=== PATIENT | female | born 1975 | race Caucasian/White ===

== ENCOUNTER 2016-12-15 19:58 | Emergency (ER) | payer OTHER ==
[~2016-12-15] VITALS: Ht 162.6 cm; Wt 63.0 kg
[~2016-12-15 19:58] MED LIST: DICY1TAB26 PO; LEVO.1 PO; PANT20 PO; SUCR1S PO
[2016-12-15 20:17] VITALS: BP 113/59; PULSE 86; RESP 18; TEMP 98.7; O2SAT 98
[2016-12-15] MEDS ORDERED: SODIUM CHLOR 0.9% 1000 ML INJ 1,000 ML IV SCH (20:35)
[2016-12-15] MEDS ORDERED: ASPI1POW8 PO (20:42)
[2016-12-15] MEDS ORDERED: LEVO.125 PO (20:42)
--- NOTE | 2016-12-15 20:43 | PD ---
HPI Chief Complaint: Abdominal Pain Time Seen by Provider: 20:35 Travel History International Travel<30 days: No Contact w/Intl Traveler<30days: No Traveled to known affect area: No History of Present Illness HPI 41-year-old female presents to the emergency department by private transportation for complaint of breast or worsening right lower quadrant abdominal pain. According to patient she felt well yesterday and then awakened this morning with mild nausea. Patient noticed that she cannot finish her lunch at lunchtime. Patient started noticing some mild right-sided lower quadrant abdominal discomfort and felt as if she may need to have a bowel movement. Patient used [id number] gas medication and had a small bowel movement. No mucoid or grossly bloody stool. Patient states prominent did not relieve symptoms. Patient denies any dysuria frequency or urgency. Patient is status post hysterectomy secondary to endometriosis. Patient reports prior history of ovarian cystic pain but denies this being similar. Patient was last seen by her exercise scientist this year and no imaging study was done at that time although the recommendation was for CT abdomen and pelvis. Patient did not have the study. Patient denies fever or chills. Patient rates pain at rest 3/ 10 in intensity however with ambulation or palpation pain increased 8/10 in intensity. PFSH Past Medical History Narrative Medical Endometriosis, hysterectomy, ovarian cyst with cyst excision, hypothyroidism C- section 2; occasional alcohol and tobacco use; nursing notes reviewed Cancer: No Diabetes: No Diminished Hearing: No Hepatitis: No Hiatal Hernia: No Reproductive: Yes (ENDOMETRIOSIS) Thyroid Disease: Yes (hypo) : 2 Para: 2 Ovarian Cysts: Yes Past Surgical History Abdominal Surgery: Yes (LAP 02/13/20052002) Section: Yes (X2) Gynecologic Surgery: Yes (x2 laparoscopy x2 ) Hysterectomy: Yes (DEC 2010) Other Surgery: Yes Family History Family Hypercholesterolemia: Yes (MOTHER) Social History Alcohol Use: Yes (socially) Tobacco Use: Yes Substance Use: No Allergies-Medications (Allergen,Severity, Reaction): Coded Allergies: naproxen (Unverified Allergy, Severe, Anaphylaxis, 12/14/16) Reported Meds & Prescriptions Reported Meds & Active Scripts Active Bactrim DS (Sulfamethoxazole-Trimethoprim) 800-160 Mg Tab 1 Tab PO BID Lortab (Hydrocodone-Acetaminophen) 5-325 Mg Tab 1 Tab PO Q6H PRN Zofran Odt (Ondansetron Odt) 4 Mg Tab 4 Mg SL Q6HR PRN Reported Bc Fast Pain Relief Powder (Aspirin-Caffeine Powder) 845-65 Mg Powderpack 1 Pack PO Q4HR PRN Synthroid (Levothyroxine Sodium) 125 Mcg Tab 125 Mcg PO DAILY Review of Systems Except as stated in HPI: all other systems reviewed are Neg General / Constitutional: No: Fever, Chills HENT: No: Congestion Cardiovascular: No: Chest Pain or Discomfort Gastrointestinal: Positive: Nausea, Abdominal Pain, Loss of Appetite, No: Vomiting, Diarrhea, Hematochezia Genitourinary: No: Dysuria, Pelvic Pain, Flank Pain Musculoskeletal: No: Myalgias, Arthralgias Skin: No Rash Neurologic: No: Weakness Psychiatric: Positive: Anxiety Hematologic/Lymphatic: No: Lymph Node Enlargement Physical Exam Narrative GENERAL: Well-developed well-nourished female in obvious discomfort no respiratory distress SKIN: Warm and dry. HEAD: Normocephalic. EYES: No scleral icterus. No injection or drainage. NECK: Supple, trachea midline. No JVD or lymphadenopathy. CARDIOVASCULAR: Regular rate and rhythm without murmurs, gallops, or rubs. RESPIRATORY: Breath sounds equal bilaterally. No accessory muscle use. GASTROINTESTINAL: Abdomen soft, reproducible right lower quadrant tenderness with voluntary guarding without rebound nondistended. Pelvic exam: Normal external exam no redness lesion or induration; speculum exam scant white mucus no blood no clots normal cervical cuff; bimanual exam no adnexal mass mild tenderness on right nontender on left. MUSCULOSKELETAL: No cyanosis, or edema. BACK: Nontender without obvious deformity. No CVA tenderness. Data Data Last Documented VS Vital Signs Date Time Temp Pulse Resp B/P Pulse Ox O2 Delivery O2 Flow Rate FiO2 12/16/16 00:05 74 16 90/57 100 Room Air 12/15/16 20:17 98.7 Orders Complete Blood Count With Diff (12/15/16 20:35) Comprehensive Metabolic Panel (12/15/16 20:35) Urinalysis - C+S If Indicated (12/15/16 20:35) Ct Abd/Pel W Iv Contrast(Rout) (12/15/16 20:35) Iv Access Insert/Monitor (12/15/16 20:35) Ecg Monitoring (12/15/16 20:35) Oximetry (12/15/16 20:35) Sodium Chlor 0.9% 1000 Ml Inj (Ns 1000 M (12/15/16 20:35) Sodium Chloride 0.9% Flush (Ns Flush) (12/15/16 20:45) Ondansetron Inj (Zofran Inj) (12/15/16 20:45) Hydromorphone Pf Inj (Dilaudid Pf Inj) (12/15/16 20:45) Oral Contrast - Adult (12/15/16 20:41) Diatrizoate Liq ( Gastroview Liq) (12/15/16 21:06) Urine Culture (12/15/16 21:00) Hydromorphone Pf Inj (Dilaudid Pf Inj) (12/15/16 22:00) Iohexol 350 Inj (Omnipaque 350 Inj) (12/15/16 22:39) Ceftriaxone Inj (Rocephin Inj) (12/15/16 23:15) Phenazopyridine (Pyridium) (12/15/16 23:15) Sodium Chlorid 0.9% 500 Ml Inj (Ns 500 M (12/15/16 23:15) Labs Laboratory Tests Test 12/15/16 21:00 White Blood Count 11.9 TH/MM3 Red Blood Count 4.51 MIL/MM3 Hemoglobin 14.1 GM/DL Hematocrit 41.1 % Mean Corpuscular Volume 91.0 FL Mean Corpuscular Hemoglobin 31.2 PG Mean Corpuscular Hemoglobin 34.3 % Concent Red Cell Distribution Width 13.1 % Platelet Count 222 TH/MM3 Mean Platelet Volume 8.2 FL Neutrophils (%) (Auto) 75.0 % Lymphocytes (%) (Auto) 17.1 % Monocytes (%) (Auto) 5.4 % Eosinophils (%) (Auto) 2.1 % Basophils (%) (Auto) 0.4 % Neutrophils # (Auto) 9.1 TH/MM3 Lymphocytes # (Auto) 2.0 TH/MM3 Monocytes # (Auto) 0.6 TH/MM3 Eosinophils # (Auto) 0.2 TH/MM3 Basophils # (Auto) 0.0 TH/MM3 CBC Comment DIFF FINAL Differential Comment Urine Color YELLOW Urine Turbidity CLEAR Urine pH 5.5 Urine Specific [place] 1.015 Urine Protein NEG mg/dL Urine Glucose (UA) NEG mg/dL Urine Ketones NEG mg/dL Urine Occult Blood NEG Urine Nitrite NEG Urine Bilirubin NEG Urine Leukocyte Esterase NEG Urine RBC 0-2 /hpf Urine WBC 0-2 /hpf Urine Squamous Epithelial 6-8 /hpf Cells Urine Bacteria MANY /hpf Microscopic Urinalysis Comment CULTURE INDICATED Sodium Level 138 MEQ/L Potassium Level 3.7 MEQ/L Chloride Level 107 MEQ/L Carbon Dioxide Level 25.0 MEQ/L Anion Gap 6 MEQ/L Blood Urea Nitrogen 12 MG/DL Creatinine 0.79 MG/DL Estimat Glomerular Filtration 80 ML/MIN Rate Random Glucose 83 MG/DL Calcium Level 8.4 MG/DL Total Bilirubin 0.3 MG/DL Aspartate Amino Transf 16 U/L (AST/SGOT) Alanine Aminotransferase 23 U/L (ALT/SGPT) Alkaline Phosphatase 59 U/L Total Protein 7.4 GM/DL Albumin 4.1 GM/DL MDM Medical Decision Making Medical Screen Exam Complete: Yes Emergency Medical Condition: Yes Medical Record Reviewed: Yes Interpretation(s) CBC & BMP Diagram 12/15/16 21:00 Vital Signs Date Time Temp Pulse Resp B/P Pulse Ox O2 Delivery O2 Flow Rate FiO2 12/15/16 21:55 16 12/15/16 20:50 16 99 Room Air 12/15/16 20:17 98.7 86 18 113/59 98 UA: many bacteria; cx indicated Last Impressions Abdomen/Pelvis CT 12/15/162034 Signed Impressions: Service Date/Time: Thursday, December 15, 2016 22:35 - CONCLUSION: 1. Acute abnormality is not seen. 2. Mild cystic change in the adnexal regions likely related follicles in the ovaries. Michael Thomas MD Differential Diagnosis Abdominal pain, appendicitis, ovarian torsion, renal colic, atypical diverticulitis Narrative Course Patient Nothing by mouth except for oral contrast, IV access obtained, specimens collected and sent for resulting, patient administered normal saline bolus 1 L along with Dilaudid 0.5 mg IV and Zofran 4 mg IV Patient continues to report pain after receiving pain medication but declines any additional pain medication administration CBC with automated differential mild leukocytosis with left shift chemistries within normal range urinalysis shows many bacteria and culture is indicated Patient to CT and imaging resulted per reading radiologist in no acute abnormalities identified and specifically appendix is visualized and reported as normal per reading radiologist Patient aware of imaging results and lab results. Patient reports she is able to take ibuprofen and Toradol without adverse allergic reaction but cannot take Naprosyn. Patient this time declining any additional pain medication. Patient has ambulated several times to the restroom without difficulty and symptom improvement post micturition. Patient receiving IV fluid bolus as blood pressure did decrease after administration of pain medication and also receiving first dose of antibiotic IV. Offered patient observation admission for pain management but patient declined stating she is better and does not want to be admitted. Patient encouraged to at least pursue close follow up with her PCP or return to the emergency department for ongoing symptoms or if develops fever. Diagnosis Primary Impression: Abdominal pain Qualified Code: R10.31 - Right lower quadrant abdominal pain Additional Impressions: Bacteria in urine Ovarian cyst Qualified Code: N83.201 - Cysts of both ovaries Referrals: Primary Care Physician 1 day Patient Instructions: Narcotic given in the ED, General Instructions Departure Forms: Tests/Procedures, Work Release Special Instructions: no work x 2 days Additional Instructions: Increase fluid hydration Takes Zofran as prescribed as needed for nausea and/or vomiting Monitor temperature every 4 hours with thermometer and take as needed acetaminophen/Tylenol every 4 hours for fever 100.4F or greater or for minor pain; May take as tolerated ibuprofen/Motrin/Advil 600 mg as often as every 6 hours as tolerated for fever 100.4F or greater or for pain associated with inflammation however do not take this medication if precipitates any rash or pruritus. Complete course of antibiotic as prescribed Take pain medication as prescribed as needed No work 2 days Follow-up with your primary care provider call office in a.m. Return to the emergency department for pain fever vomiting or any concerns Med/Other Pt SpecificInfo: Prescription(s) given Scripts Sulfamethoxazole-Trimethoprim (Bactrim DS)800-160 Mg Tab1 Tab PO BID #14 TAB Ref 0 Prov:Trista Mendez MD 12/15/16 Hydrocodone-Acetaminophen (Lortab)5-325 Mg Tab1 Tab PO Q6H PRN (PAIN) #7 TAB Ref 0 Prov:Trista Mendez MD 12/15/16 Ondansetron Odt (Zofran Odt)4 Mg Tab4 Mg SL Q6HR PRN (Nausea/Vomiting) #10 TAB Ref 0 Prov:Trista Mendez MD 12/15/16 Disposition: 01 DISCHARGE HOME Condition: Stable Trista Mendez MD Dec 15, 2016 20:43
[2016-12-15] MEDS ORDERED: SODIUM CHLORIDE 0.9% FLUSH 10 ML FLUSH IV FLUSH PRN (20:45)
[2016-12-15] MEDS ORDERED: ONDANSETRON HCL 4 MG/2 ML VIAL IV PUSH ONE (20:45)
[2016-12-15] MEDS ORDERED: HYDROmorphone HCL PF 1 MG/ML VIAL IV PUSH ONE ×2 (20:45→22:00)
[2016-12-15 20:50] VITALS: BP 110/74; PULSE 81; RESP 16; RESP 18; O2SAT 99
[2016-12-15] MEDS ORDERED: DIATRIZOATE MEGLUM/DIATRIZOATE SOD 9 ML CUP ONE (21:06)
[2016-12-15 21:20] VITALS: BP 104/65; PULSE 72; RESP 16; O2SAT 100
[2016-12-15 21:23] LABS: BLOOD, URINE NEG (NEG); GLUCOSE,URINE NEG (NEG); KETONE, URINE NEG (NEG); NITRITE,URINE NEG (NEG); PH, URINE 5.5 (5.0-8.5)
[2016-12-15 21:24] LABS: AUTOMATED NEUTROPHIL # 9.1 TH/MM3 (1.8-7.7); BASOPHIL % 0.4 % (0.0-2.0); EOSINOPHIL # 0.2 TH/MM3 (0-0.4); EOSINOPHIL % 2.1 % (0.0-4.0); HEMATOCRIT 41.1 % (35.0-46.0); HEMO FLAGS DIFF FINAL; LYMPH % 17.1 % (9.0-44.0); MEAN CORPUSCULAR HEMOGLOBIN 31.2 PG (27.0-34.0); MEAN CORPUSCULAR HGB CONC 34.3 % (32.0-36.0); MONO % 5.4 % (0.0-8.0); PLATELET COUNT 222 TH/MM3 (150-450); RED BLOOD COUNT 4.51 MIL/MM3 (4.00-5.30); RED CELL DISTRIBUTION WIDTH 13.1 % (11.6-17.2); WHITE BLOOD COUNT 11.9 TH/MM3 (4.0-11.0)
[2016-12-15 21:29] LABS: BACTERIA, URINE MANY /hpf; RBC, URINE 0-2 /hpf (0-3); URINE COLOR YELLOW (YELLW/STRAW); WBC, URINE 0-2 /hpf (0-5)
[2016-12-15 21:30] LABS: COMMENT (UR) CULTURE INDICATED; CULTURE IF INDICATED CULTURE INDICATED
[2016-12-15 21:34] LABS: CHLORIDE 107 MEQ/L (98-107); POTASSIUM 3.7 MEQ/L (3.5-5.1); SODIUM (NA) 138 MEQ/L (136-145)
[2016-12-15 21:38] LABS: ANION GAP 6 MEQ/L (5-15); BLOOD UREA NITROGEN 12 MG/DL (7-18)
[2016-12-15 21:41] LABS: ALT (GPT) 23 U/L (10-53); AST (GOT) 16 U/L (15-37); GLOMERULAR FILTRATION RATE 80 ML/MIN (>89)
[2016-12-15 21:43] LABS: TOTAL BILIRUBIN ADULT 0.3 MG/DL (0.2-1.0)
[2016-12-15 21:44] LABS: ALKALINE PHOSPHATASE 59 U/L (45-117)
[2016-12-15 22:20] VITALS: BP 95/58; PULSE 77; RESP 16; O2SAT 100
[2016-12-15] MEDS ORDERED: IOHEXOL 350 MG/ML 10 ML VIAL (for RAD DIAG) IV ONE (22:39)
--- NOTE | 2016-12-15 22:59 | RADRPT ---
EXAM DATE/TIME: 12/15/2016 22:35 [facility] COMPARISON: CT ABDOMEN & PELVIS W CONTRAST, November 11, 2014, 13:37. INDICATIONS : Right lower quadrant abdomen discomfort. IV CONTRAST: 100 cc Omnipaque 350 (iohexol) IV ORAL CONTRAST: Prescribed oral contrast ingested. RADIATION DOSE: 10.95 CTDIvol (mGy) MEDICAL HISTORY : Endometriosis. Ovarian cysts. SURGICAL HISTORY : Hysterectomy. section. ENCOUNTER: Initial ACUITY: 1 day PAIN SCALE: 3/10 LOCATION: Right lower quadrant abdomen TECHNIQUE: Volumetric scanning of the abdomen and pelvis was performed. Using automated exposure control and ad justment of the mA and/or kV according to patient size, radiation dose was kept as low as reasonably achievable to obtain optimal diagnostic quality images. DICOM format image data is available electro nically for review and comparison. FINDINGS: LOWER LUNGS: The visualized lower lungs are clear. LIVER: Homogeneous density without lesion. There is no dilation of the biliary tree. No calcified gallston es. SPLEEN: Normal size without lesion. There is a splenule seen inferior to the spleen. PANCREAS: Within normal limits. KIDNEYS: Normal in size and shape. There is no mass, stone or hydronephrosis. ADRENAL GLANDS: Within normal limits. VASCULAR: There is no aortic aneurysm. BOWEL/MESENTERY: The stomach, small bowel, and colon demonstrate no acute abnormality. There is no free intraperitone al air or fluid. The appendix appears grossly normal. There is some air within the appendix. The appe ndix is not thickened. The fat around the appendix is normal. ABDOMINAL WALL: Within normal limits. RETROPERITONEUM: There is no lymphadenopathy. BLADDER: No wall thickening or mass. REPRODUCTIVE: The patient is status post hysterectomy. There is mild cystic change at the adnexal regions bilateral ly likely related to the ovaries. The cysts measure no more than 1.5 cm. INGUINAL: There is no lymphadenopathy or hernia. MUSCULOSKELETAL: Within normal limits for patient age. CONCLUSION: 1. Acute abnormality is not seen. 2. Mild cystic change in the adnexal regions likely related follicles in the ovaries. Michael Thomas MD on December 15, 2016 at 22:50 Board Certified Radiologist. This report was verified electronically.
[2016-12-15] MEDS ORDERED: SODIUM CHLORID 0.9% 500 ML INJ 500 ML IV ONE (23:15)
[2016-12-15] MEDS ORDERED: PHENAZOPYRIDINE HCL 100 MG TAB PO ONE (23:15)
[2016-12-15] MEDS ORDERED: cefTRIAXone INJ 1,000 MG in SODIUM CHLORIDE 0.9% INJ 100 ML IV ONE (23:15)
[2016-12-15 23:20] VITALS: BP 89/52; PULSE 76; RESP 16; O2SAT 98
[2016-12-15] MEDS ORDERED: ZOFR4TAB3 SL (23:40)
[2016-12-15] MEDS ORDERED: BACT800T5 PO (23:40)
[2016-12-15] MEDS ORDERED: HYDR-3533 PO (23:40)
[2016-12-16 00:05] VITALS: BP 90/57; PULSE 74; RESP 16; O2SAT 100
[2016-12-16 00:50] VITALS: BP 97/51; PULSE 76; RESP 16; O2SAT 99
[2016-12-16] MEDS ORDERED: ACETAMINOPHEN 325 MG TAB PO ONE (01:00)
== END 2016-12-16 01:15 | disposition home or self-care (01) ==
LOC: PHED 19:58
DX: R10.31 Right lower quadrant pain (principal); R82.71 Bacteriuria; N83.201 Unspecified ovarian cyst, right side; N83.202 Unspecified ovarian cyst, left side; R11.0 Nausea; D72.829 Elevated white blood cell count, unspecified; E03.9 Hypothyroidism, unspecified; Z72.0 Tobacco use; Z87.42 Personal history of other diseases of the female genital tract
CPT/HCPCS: 74177; 80053; 81001; 85025; 87086; 96361; 96365; 96375; 99285; J0696; J1170; J2405; J7030; J7040; Q9963; Q9967